=== PATIENT | female | born 1990 | race American Indian/Alaskan Native ===

== ENCOUNTER 2018-02-06 16:56 | Inpatient (IN) | payer BC ==
[2018-02-06] MEDS ORDERED: BACTRIM DS PO ONE (20:22)
[2018-02-06] MEDS ORDERED: MOTRIN PO ONE (20:22)
--- NOTE | 2018-02-06 20:24 | Emergency Department Report ---
- General Chief complaint: Skin/Abscess/Foreign Body Stated complaint: BOIL ON (L) SIDE BUTTOCK Time Seen by Provider: 02/06/18 20:10 Source: patient Mode of arrival: Ambulatory Limitations: No Limitations - History of Present Illness Initial comments: 27-year-old -[place] female comes in for boil to her left buttocks. Patient reports that she continues to have these boils on her buttocks. Patient reports that she had one 2 weeks ago but this one has gotten worse. Patient has been cleaning the area with peroxide but no resolution of pain. Patient has not taken any pain medication. Patient has no past medical history currently takes no medications on a daily basis and has no known drug allergies. MD complaint: abscess/boil -: days(s) (2) Location: buttocks Severity scale (0 -10): 10 Quality: aching, sharp Consistency: constant Improves with: none Worsens with: movement Context: none Associated symptoms: fever Treatments Prior to Arrival: OTC topical medication - Related Data Allergies Allergy/AdvReac Type Severity Reaction Status Date / Time No Known Allergies Allergy Unverified 02/06/18 17:28 Abscess Boil HPI - HPI Chief Complaint: Skin/Abscess/Foreign Body Stated Complaint: BOIL ON (L) SIDE BUTTOCK Time Seen by Provider: 02/06/18 20:10 Allergies/Adverse Reactions: Allergies Allergy/AdvReac Type Severity Reaction Status Date / Time No Known Allergies Allergy Unverified 02/06/18 17:28 ED Review of Systems ROS: Stated complaint: BOIL ON (L) SIDE BUTTOCK Other details as noted in HPI Skin: lesions ED Past Medical Hx - Past Medical History Previous Medical History?: No - Surgical History Past Surgical History?: No - Social History Smoking Status: Never Smoker Substance Use Type: None ED Physical Exam - General Limitations: No Limitations General appearance: alert, in no apparent distress - Head Head exam: Present: atraumatic, normocephalic - Eye Eye exam: Present: EOMI - ENT ENT exam: Present: mucous membranes moist - Cardiovascular Cardiovascular Exam: Present: tachycardia - Rectal Rectal exam: Present: tenderness - Expanded Skin Exam Expanded Type of lesion: Present: abscess Distribution of rash: other (superior gluteal cleft) ED Course Vital Signs 02/06/18 02/06/18 17:26 21:24 Temperature 100.0 F H 99.5 F Pulse Rate 119 H 100 H Respiratory 16 18 Rate Blood Pressure 125/90 Blood Pressure 143/87 [Right] O2 Sat by Pulse 100 100 Oximetry ED Medical Decision Making - Lab Data Result diagrams: 02/06/18 20:34 02/06/18 20:34 - Medical Decision Making Patient's been evaluated by this provider fast track.. CBC CMP has been ordered. Bactrim double strength and ibuprofen ordered Patient's CBC came back with elevated white count. Patient is still tachycardia after having ibuprofen for pain management Discussed case with Dr. Chong. Spoke with the admitting provider for evaluation for admission. IV insertion, lactic acid, blood cultures have been ordered. Critical care attestation.: If time is entered above; I have spent that time in minutes in the direct care of this critically ill patient, excluding procedure time. ED Disposition Clinical Impression: Pilonidal abscess Disposition: OP ADMIT IP TO THIS HOSP Is pt being admited?: Yes Does the pt Need Aspirin: No Condition: Stable Referrals: PRIMARY CARE, [Primary Care Provider] - 3-5 Days
[2018-02-06 20:45] LABS: Basophils % (Auto) 0.2 % (0.0-1.8); Eosinophils % (Auto) 0.2 % (0.0-4.3); Hematocrit 36.9 % (30.3-42.9); Hemoglobin 12.1 gm/dl (10.1-14.3); Lymphocytes # (Auto) 2.2 K/mm3 (1.2-5.4); Lymphocytes % (Auto) 16.4 % (13.4-35.0); Mean Corpuscular HGB Conc 33 % (30-34); Mean Corpuscular Hemoglobin 27 pg (28-32); Mean Corpuscular Volume 81 fl (79-97); Monocytes # (Auto) 0.9 K/mm3 (0.0-0.8); Platelet Count 367 K/mm3 (140-440); Red Blood Count 4.56 M/mm3 (3.65-5.03); Red Cell Distribution Width 15.1 % (13.2-15.2)
[2018-02-06 21:07] LABS: Alanine Aminotransferase 18 units/L (7-56); Albumin 4.2 g/dL (3.9-5); BUN/Creatinine Ratio 9; Blood Urea Nitrogen 7 mg/dL (7-17); Hemolysis Index 5
[2018-02-06] MEDS ORDERED: TYLENOL PO PRN (23:07)
[2018-02-06] MEDS ORDERED: ZOFRAN IV PRN (23:07)
[2018-02-07] MEDS: NACL 0.9% 1000 ML 1,000 ML IV SCH ×3 (01:28→16:51)
[2018-02-07] MEDS ORDERED: ZOSYN/NS 3.375GM/50ML 3.375 GM/50 ML BAG IV SCH (06:00)
[2018-02-07] MEDS: ZOSYN/NS 4.5GM/100ML 4.5 GM/100 ML VIAL IV SCH ×3 (06:52→22:53)
--- NOTE | 2018-02-07 07:25 | History and Physical Report ---
CHIEF COMPLAINT: Boil with pain in the buttocks area. HISTORY OF PRESENT ILLNESS: The patient is a 27-year-old female, who presented to the Emergency Room with boils in the buttocks area and boil is associated with pain and the patient says she had some boils about 2 weeks ago and kept applying hydrogen peroxide to the area without any resolution and the pain became increasingly worse to the extent that the patient cannot sit down comfortably. There is no history of fever or chills. No history of nausea and vomiting. The patient presented for evaluation. PAST MEDICAL HISTORY: Unremarkable. PAST SURGICAL HISTORY: Noncontributory. FAMILY HISTORY: Noncontributory. SOCIAL HISTORY: The patient does not smoke, does not drink alcohol, and does not use illicit drugs. MEDICATIONS: The patient is not on any medication. ALLERGIES: There are no known drug allergies. REVIEW OF SYSTEMS: CONSTITUTIONAL: There is no fever, no chills, no diaphoresis. HEENT: There is no headache or sore throat. CARDIOVASCULAR SYSTEM: There is no chest pain or orthopnea. RESPIRATORY SYSTEM: There is no shortness of breath or cough. GASTROINTESTINAL SYSTEM: There is no nausea, no vomiting, no abdominal pain, diarrhea or constipation. NEUROLOGICAL SYSTEM: There is no numbness, no dizziness, no altered mental status. MUSCULOSKELETAL SYSTEM: There is no joint pain or swelling. DERMATOLOGICAL SYSTEM: There is boil and swelling in the buttocks area with pain. GENITOURINARY SYSTEM: There is no dysuria, hematuria or flank pain. Rest of system review is normal. PHYSICAL EXAMINATION: GENERAL: At the time of exam, the patient was found to be alert, oriented x 3 and in [id number] distress due to pain in the buttocks area. VITAL SIGNS: At the initial time of presentation showed temperature of 100 degrees Fahrenheit, pulse of 119, respirations 16, blood pressure 125/90, O2 sat of 100% on room air. HEENT: Exam showed pupils to be equal, round, reactive to light and accommodation. Extraocular muscles are intact. NECK: Supple with no JVD or carotid bruits. CARDIOVASCULAR SYSTEM: Show normal first and second heart sounds with no gallops or murmurs. RESPIRATORY SYSTEM: Show good air entry on both sides of the lungs with no abnormal breath sounds. GASTROINTESTINAL SYSTEM: Show abdomen to be full, soft, nontender with no organomegaly or rigidity. NEUROLOGICAL: Exam shows no focal deficit. MUSCULOSKELETAL SYSTEM: Show no joint swelling or tenderness. DERMATOLOGICAL SYSTEM: Shows swelling in the buttocks area, mainly in the left buttock and in the cleft with an area of induration and tenderness. GENITOURINARY SYSTEM: Show no costovertebral angle tenderness. PERTINENT LABORATORY AND IMAGING STUDIES: The patient has no imaging studies done. Lab results show CBC with elevated white count of 13,400, normal hemoglobin and normal hematocrit with CBC differential showing elevated segmented neutrophil of 76.2%. The patient's chemistry was unremarkable. Lactic acid level came back normal. DIAGNOSES: Perianal cellulitis with abscess. PLAN OF CARE: 1. The patient will be placed on observation in the medical-surgical [facility]. 2. The patient will have surgical consult with Dr. Akers for possible incision and drainage of the perianal abscess. 3. The patient will be on IV morphine 2 mg every 3 hours as needed for pain and IV Zofran 4 mg every 8 hours for nausea and vomiting. 4. The patient will be on IV Zosyn 3.375 grams q. 8 hours. 5. The patient will be on Tylenol 650 mg every 4 hours as needed for fever and headache. 6. The patient will be on IV Zofran 4 mg every 8 hours as needed for nausea and vomiting. 7. The patient's diet will be regular diet and the patient will be n.p.o. after midnight for possible intervention by the surgeon in the morning. JOB# [id number] OCN/NTS
[2018-02-07] MEDS: MORPHINE IV PRN ×2 (07:38→11:28)
[2018-02-07] MEDS ORDERED: MILK OF MAGNESIA PO ONE ×2 (16:03→22:00)
--- NOTE | 2018-02-07 18:37 | Cat Scan Report ---
FINAL REPORT PROCEDURE: CT pelvis with contrast. TECHNIQUE: Computerized axial tomography of the pelvis was performed following the IV injection of iodinated nonionic contrast. HISTORY: abscess/cyst on buttock COMPARISON: No prior studies are available for comparison. TECHNICAL QUALITY: Satisfactory. FINDINGS: There is some focal infiltration of the fat on both sides of the intergluteal cleft. This is more pronounced on the left side. This is located at the level of the sacrococcygeal junction. This infiltration of the fat suggests an acute inflammatory process. There is no fluid accumulation to suggest a cyst or abscess. The remaining soft tissues appear normal. The regional skeleton appears intact. IMPRESSION: Probable acute inflammation within the subcutaneous fat near the intergluteal cleft as described.
--- NOTE | 2018-02-07 20:57 | Progress Note ---
Assessment and Plan Assessment and plan: 27F with no significant pmh who pw Left buttock pain, swelling and induration Left buttock cellulitis -CT pelvis reviewed, cellulitis confirmed, no fluid collection observed -surgery consult appreciated -continue IV abx History Interval history: General.: Appears well, no distress, nontoxic HEENT: Moist mucous membranes, extraocular muscles intact, no lymphadenopathy Neck: supple Cardiac: S1-S2 heard Lungs: clear to auscultation bilaterally Abdomen: soft , nontender, nondistended, bowel sounds positive Extremities: no edema clubbing or cyanosis Skin: no rash or lesions Neurologic: no gross focal deficits Psych: appropriate behavior, appropriate mood, corporative, judgment intact Hospitalist Physical - Physical exam Narrative exam: Review of systems Constitutional: No fevers, no malaise, no joint pains CVS: No chest pain, no orthopnea, no dyspnea on exertion, no pedal edema GI: No abdominal pain, no diarrhea, no vomiting, no constipation Respiratory: No shortness of breath, no wheezing, no coughing - Constitutional Vitals: Temp Pulse Resp BP Pulse Ox 99.0 F 100 H 18 118/67 99 02/07/18 06:07 02/07/18 06:07 02/07/18 06:07 02/07/18 06:07 02/07/18 06:07 Results - Labs CBC & Chem 7: 02/06/18 20:34 02/06/18 20:34 Labs: Laboratory Last Values WBC 13.4 K/mm3 (4.5-11.0) H 02/06/18 20:34 RBC 4.56 M/mm3 (3.65-5.03) 02/06/18 20:34 Hgb 12.1 gm/dl (10.1-14.3) 02/06/18 20:34 Hct 36.9 % (30.3-42.9) 02/06/18 20:34 MCV 81 fl (79-97) 02/06/18 20:34 MCH 27 pg (28-32) L 02/06/18 20:34 MCHC 33 % (30-34) 02/06/18 20:34 RDW 15.1 % (13.2-15.2) 02/06/18 20:34 Plt Count 367 K/mm3 (140-440) 02/06/18 20:34 Lymph % (Auto) 16.4 % (13.4-35.0) 02/06/18 20:34 [place] % (Auto) 7.0 % (0.0-7.3) 02/06/18 20:34 Eos % (Auto) 0.2 % (0.0-4.3) 02/06/18 20:34 Baso % (Auto) 0.2 % (0.0-1.8) 02/06/18 20:34 Lymph # 2.2 K/mm3 (1.2-5.4) 02/06/18 20:34 [place] # 0.9 K/mm3 (0.0-0.8) H 02/06/18 20:34 Eos # 0.0 K/mm3 (0.0-0.4) 02/06/18 20:34 Baso # 0.0 K/mm3 (0.0-0.1) 02/06/18 20:34 Seg Neutrophils % 76.2 % (40.0-70.0) H 02/06/18 20:34 Seg Neutrophils # 10.2 K/mm3 (1.8-7.7) H 02/06/18 20:34 Sodium 137 mmol/L (137-145) 02/06/18 20:34 Potassium 3.9 mmol/L (3.6-5.0) 02/06/18 20:34 Chloride 103.8 mmol/L (98-107) 02/06/18 20:34 Carbon Dioxide 21 mmol/L (22-30) L 02/06/18 20:34 Anion Gap 16 mmol/L 02/06/18 20:34 BUN 7 mg/dL (7-17) 02/06/18 20:34 Creatinine 0.8 mg/dL (0.7-1.2) 02/06/18 20:34 Estimated GFR > 60 ml/min 02/06/18 20:34 BUN/Creatinine Ratio 9 % 02/06/18 20:34 Glucose 90 mg/dL (65-100) 02/06/18 20:34 Lactic Acid 0.80 mmol/L (0.7-2.0) 02/06/18 23:00 Calcium 9.0 mg/dL (8.4-10.2) 02/06/18 20:34 Total Bilirubin 0.40 mg/dL (0.1-1.2) 02/06/18 20:34 AST 17 units/L (5-40) 02/06/18 20:34 ALT 18 units/L (7-56) 02/06/18 20:34 Alkaline Phosphatase 60 units/L (35-129) 02/06/18 20:34 Total Protein 7.6 g/dL (6.3-8.2) 02/06/18 20:34 Albumin 4.2 g/dL (3.9-5) 02/06/18 20:34 Albumin/Globulin Ratio 1.2 % 02/06/18 20:34
[2018-02-08] MEDS ORDERED: NACL 0.9% IR ONE
[2018-02-08] MEDS: ZOSYN/NS 4.5GM/100ML 4.5 GM/100 ML VIAL IV SCH ×2 (06:39→21:55)
[2018-02-08] MEDS: NACL 0.9% 1000 ML 1,000 ML IV SCH (06:40)
[2018-02-08] MEDS: MORPHINE IV PRN (08:14)
[2018-02-08] MEDS ORDERED: DILAUDID IV PRN ×2 (13:05→13:23)
--- NOTE | 2018-02-08 13:07 | Anesthesia Consultation ---
Anesthesia Consult and Med Hx Date of service: 02/08/18 - Airway Anesthetic Teeth Evaluation: Good (broken top left molar) ROM Head & Neck: Adequate Mental/Hyoid Distance: Adequate Mallampati Class: Class II Intubation Access Assessment: Probably Good - Pulmonary Exam CTA: Yes - Cardiac Exam Cardiac Exam: RRR - Pre-Operative Health Status ASA Pre-Surgery Classification: ASA2 Proposed Anesthetic Plan: General - Pulmonary Hx Smoking: No Hx Asthma: No COPD: No - Cardiovascular System Hx Hypertension: No Hx Heart Attack/AMI: No - Central Nervous System Hx Seizures: No CVA: No - Endocrine Hx Renal Disease: No Hx Insulin Dependent Diabetes: No - Hematic Hx Anemia: No - Other Systems Hx Obesity: Yes - Additional Comments Anesthesia Medical History Comments: No prior anesthetic complications.
--- NOTE | 2018-02-08 13:07 | Anesthesia Day of Surgery ---
Anesthesia Day of Surgery - Day of Surgery Patient Examined: Yes Patient H&P Reviewed: Yes Patient is NPO: Yes
[2018-02-08] MEDS ORDERED: DIPRIVAN 10 MG/ML IV ONE (13:12)
[2018-02-08] MEDS: LACTATED RINGERS 1,000 ML IV SCH ×2 (13:28→17:15)
--- NOTE | 2018-02-08 13:40 | Consultation ---
HISTORY OF PRESENT ILLNESS: I was called to see this patient. She is a 27-year-old black female. She is little bit on the overweight side. She mentioned that she had an abscess in her buttock about 1 year ago that required lancing. This was done in [facility]. She did well. Apparently, in the last 4-5 days, she has complaints of severe pain in the left buttock area and she felt some swelling with severe tenderness, but there is no evidence of any sinus tract, there is no evidence of any purulent material coming out. She denied any diabetes. She does not take any medication on regular basis. She was seen by Dr. Jeff Yeung who asked me to see her. I saw her this afternoon. PHYSICAL EXAMINATION: GENERAL: She is a fine lady. She is a little bit obese. HEAD AND NECK: Nonrevealing. Neck is supple. CHEST: Essentially clear. HEART: Sound normal. ABDOMEN: Protuberant, soft, benign. EXTREMITIES: Showed no evidence of edema. RECTAL: Showed a small area that is about 5 x 5 cm located on the left side of her buttock about 2 cm from the anal verge. There is no evidence of any discharge. IMPRESSION: Perirectal abscess for drainage. We will try to do that tomorrow under local standby anesthesia and I am going to call to handle that. JOB# [id number] ANDREA/RAGINI FAJARDO
[2018-02-08] MEDS ORDERED: MARCAINE 0.5% INFILTRATI ONE ×2 (13:44)
[2018-02-08] MEDS ORDERED: ZOFRAN IV NR (14:00)
[2018-02-08] MEDS ORDERED: VERSED IV NR (14:00)
[2018-02-08] MEDS ORDERED: SUBLIMAZE ONE ×2 (14:14→15:13)
[2018-02-08] MEDS ORDERED: QUELICIN ONE (15:09)
[2018-02-08] MEDS ORDERED: DECADRON ONE (15:09)
--- NOTE | 2018-02-08 16:19 | Progress Note ---
Hospitalist Physical - Constitutional Vitals: Temp Pulse Resp BP Pulse Ox 97.3 F L 103 H 15 165/82 100 02/08/18 15:29 02/08/18 15:44 02/08/18 15:44 02/08/18 15:44 02/08/18 15:44 Results - Labs CBC & Chem 7: 02/06/18 20:34 02/06/18 20:34 Labs: Laboratory Last Values WBC 13.4 K/mm3 (4.5-11.0) H 02/06/18 20:34 RBC 4.56 M/mm3 (3.65-5.03) 02/06/18 20:34 Hgb 12.1 gm/dl (10.1-14.3) 02/06/18 20:34 Hct 36.9 % (30.3-42.9) 02/06/18 20:34 MCV 81 fl (79-97) 02/06/18 20:34 MCH 27 pg (28-32) L 02/06/18 20:34 MCHC 33 % (30-34) 02/06/18 20:34 RDW 15.1 % (13.2-15.2) 02/06/18 20:34 Plt Count 367 K/mm3 (140-440) 02/06/18 20:34 Lymph % (Auto) 16.4 % (13.4-35.0) 02/06/18 20:34 [place] % (Auto) 7.0 % (0.0-7.3) 02/06/18 20:34 Eos % (Auto) 0.2 % (0.0-4.3) 02/06/18 20:34 Baso % (Auto) 0.2 % (0.0-1.8) 02/06/18 20:34 Lymph # 2.2 K/mm3 (1.2-5.4) 02/06/18 20:34 [place] # 0.9 K/mm3 (0.0-0.8) H 02/06/18 20:34 Eos # 0.0 K/mm3 (0.0-0.4) 02/06/18 20:34 Baso # 0.0 K/mm3 (0.0-0.1) 02/06/18 20:34 Seg Neutrophils % 76.2 % (40.0-70.0) H 02/06/18 20:34 Seg Neutrophils # 10.2 K/mm3 (1.8-7.7) H 02/06/18 20:34 Sodium 137 mmol/L (137-145) 02/06/18 20:34 Potassium 3.9 mmol/L (3.6-5.0) 02/06/18 20:34 Chloride 103.8 mmol/L (98-107) 02/06/18 20:34 Carbon Dioxide 21 mmol/L (22-30) L 02/06/18 20:34 Anion Gap 16 mmol/L 02/06/18 20:34 BUN 7 mg/dL (7-17) 02/06/18 20:34 Creatinine 0.8 mg/dL (0.7-1.2) 02/06/18 20:34 Estimated GFR > 60 ml/min 02/06/18 20:34 BUN/Creatinine Ratio 9 % 02/06/18 20:34 Glucose 90 mg/dL (65-100) 02/06/18 20:34 Lactic Acid 0.80 mmol/L (0.7-2.0) 02/06/18 23:00 Calcium 9.0 mg/dL (8.4-10.2) 02/06/18 20:34 Total Bilirubin 0.40 mg/dL (0.1-1.2) 02/06/18 20:34 AST 17 units/L (5-40) 02/06/18 20:34 ALT 18 units/L (7-56) 02/06/18 20:34 Alkaline Phosphatase 60 units/L (35-129) 02/06/18 20:34 Total Protein 7.6 g/dL (6.3-8.2) 02/06/18 20:34 Albumin 4.2 g/dL (3.9-5) 02/06/18 20:34 Albumin/Globulin Ratio 1.2 % 02/06/18 20:34
--- NOTE | 2018-02-08 16:55 | Post Anesthesia Evaluation ---
- Post Anesthesia Evaluation Patient Participated: Yes Airway Patent: Yes Stable Respiratory Function: Yes Nausea/Vomiting: No Temp > 96.8F: Yes Pain Manageable: Yes Adequeate Hydration: Yes Anesthesia Complications: No
--- NOTE | 2018-02-08 20:24 | Operative Report ---
PREOPERATIVE DIAGNOSIS: Perirectal abscess. POSTOPERATIVE DIAGNOSES: Perirectal and pilonidal abscess. SURGERY: Wide excision with unroofing of pilonidal abscess and packing. ANESTHESIA: General. BLOOD LOSS: Minimal. FINDINGS: The patient had a fairly good sized pilonidal abscess that goes all the way to the perianal area. This was about 3 x 3 cm and goes on both sides of the superior anal area. I had to irrigate that well and packed it. BLOOD LOSS: Minimal. DESCRIPTION OF PROCEDURE: With the patient in the prone position, prepped and draped in usual fashion. I had to change her position from the lithotomy to the prone to see the area well. Apparently, she had a pilonidal abscess with sinus formation on her left side way by the coccygeal aspect. So, I made a spindle-shaped incision around the sinus with a length of about 2.5 x 1 cm deep subcutaneous tissue. I was able then to introduce my finger into the depth of the abscess breaking all the loculations and irrigating that well and then I packed it with use of a 2-inch iodoform gauze. A bandage was then applied. The patient was then flipped back on her back and transferred to PACU. I talked to her mom, then she had the story and thus she is to be a good up to 4-6 weeks for that to heal slowly with the packing and cystic mass with medicated soap. Gone through her some antibiotic as well. JOB# [id number] ANDREA/RAGINI
[2018-02-09] MEDS: LACTATED RINGERS 1,000 ML IV SCH (05:22)
[2018-02-09] MEDS: MORPHINE IV PRN ×2 (05:22→12:57)
[2018-02-09] MEDS: ZOSYN/NS 4.5GM/100ML 4.5 GM/100 ML VIAL IV SCH ×2 (05:55→07:45)
--- NOTE | 2018-02-09 09:49 | Query-Infection ---
"Jeremias Smith____Anjana Date:___02/09/18 Retail Sales Lead/CDS:___reymundo Phone#:____[phone] Exercise your independent professional judgment when responding to this query. Questions asked do not imply a particular answer is desired or expected. We greatly appreciate your clarification on this issue. Clinical Documentation States: 27F with no significant pmh who pw Left buttock pain, swelling and induration Left buttock cellulitis -CT pelvis reviewed, cellulitis confirmed, no fluid collection observed -surgery consult appreciated -continue IV abx Clinical findings show: (please check applicable parameters) Infection, known /suspected, with some of the following indicators; Specify the infection: Left buttock cellulitis 02/06/18 WBC 13.4 MT 119 Temp 100 F Pt given IV antibiotic : Piperacillin/Tazobactam 3 General parameters [X ] Fever (core temp >38.30C or 100.40F) [ ] Hypothermia (core temp <36C) [X ] Heart rate >90 bpm [ ] Tachypnea: >20 bpm or pCO2 < 32 mmHg [ ] Altered mental status [ ] Significant edema / +ve fluid balance (>20 ml/kg 24 h) [ ] Hyperglycemia (Bl. glucose >110 mg/dl) w/o diabetes Inflammatory parameters [X ] Leukocytosis (white blood cell count >12,000/l) [ ] Leukopenia (white blood cell count <4,000/l) [ ] Bandemia (immature WBC > 10%) [ ] Leucocyte Left Shift [ ] Plasma procalcitonin>2 SD above the normal value Hemodynamic and tissue perfusion parameters [ ] Arterial hypotension(SBP <90 mmHg, MAP <70 mmHg,or a SBP drop >40 mmHg in adults) [ ] Hyperlactatemia (>3 mmol/l) [ ] Anion Gap (> 11mEG/l) [ ] Decreased capillary refill or mottling Organ dysfunction parameters [ ] Arterial hypoxemia (PaO2/FIO2 <300) [ ] Creatinine increase =0.5 mg/dl [ ] Acute oliguria (urine output <0.5 ml | kg |h or 45 mM/l for at least 2 hrs) [ ] Coagulation abnormalities (INR >1.5 or activated partial thromboplastin time >60 s) [ ] Ileus (absent dagoberto wel sounds) [ ] Thrombocytopenia (platelet count <100,000/l) [ ] Hyperbilirubinemia (plasma total bilirubin >4 mg/dl) According to the clinical indications above, can Bacteremia be further specified? If so, please indicate below and in your Progress Notes and/ or Discharge Summary. Indicate if the condition was present on admission. PHYSICIAN RESPONSE: [ x] Sepsis [ ] Severe Sepsis [ ] Septic Shock [ ] Septicemia [ ] Sepsis now resolved [ ] SIRS due to non-infectious cause with organ dysfunction [ ] SIRS due to non-infectious cause without organ dysfunction [ ] Other: [ ] Comment/Explanation: Present on Admission: [ x] Yes (Y) [ ] Clinically undeterminable (W) [ ] No (N) [ ] Ruled Out Please also document response in your Progress Notes and/or Discharge Summary and indicate if the condition was present on admission Notes: SIRS/ SIRS WITH ORGAN DYSFUNCTION Systemic inflammatory response syndrome (SIRS) generally refers to the systemic response to trauma/shanks or other insult such as Acute Myocardial Infarction, Acute Pancreatitis, and Major Surgery with symptoms including fever, tachycardia , tachypnea, and leukocytosis (1). BACTEREMIA Presence of viable bacteria in the circulating blood (2). This term is reserved for patients that do not manifest above SIRS response. SEPTICEMIA Generally refers to a systemic disease associated with the presence of pathological microorganisms or toxins in the blood, which can include bacteria, viruses, fungi or other organisms (1). SEPSIS Generally refers to SIRS due infection (1). SEVERE SEPSIS Generally refers to sepsis associated with acute organ dysfunction (1). SEPTIC SHOCK Generally refers to circulatory failure associated with severe sepsis (2), and defined as hypotension or hypoperfusion despite adequate fluid resuscitation (1 hour) (3). REFERENCES: 1. [place] [employer]/Society of Critical Care Medicine Consensus Conference. Definitions for sepsis and organ failure and guidelines for the use of innovative therapies in sepsis. Critical Care Med 1992;20:864 - 74. 2. Konstantin hall MM, Simin MP, Shashank CLIFF, Robert E, Nicolas D, Cleveland D, Jose Luis J, Yamel CURTIS , Mack JEROME, Keisha G; International Sepsis Definitions Conference. 2001 SCCM/ESICM/ACCP/ATS/SIS International Sepsis Definitions Conference. Intensive Care Med. 2002;29(4):530-8. Epub 2002Aug 02. Review. PubMed PMID:[id number] 3. ICD-9-CM Official Guidelines for Coding and Reporting 4. Medscape Drugs, Diseases and Procedures references 5. [employer] Textbook of Internal Medicine. 18th Edition MTDD"
[2018-02-09 12:12] VITALS: BP 126/78
--- NOTE | 2018-02-09 12:47 | Discharge Summary ---
Providers - Providers Date of Admission: 02/07/18 08:59 Attending physician: KENDAL HAY MD 02/07/18 06:04 Consult to Physician [CONS] Routine Comment: Consulting Provider: BUNNY DILL Physician Instructions: Reason For Exam: PERIANAL CELLULITIS/ABCESS Primary care physician: BELL MAKER Hospitalization Condition: Stable Disposition: DC-30 STILL A PATIENT Core Measure Documentation - Palliative Care Palliative Care/ Comfort Measures: Not Applicable Exam - Constitutional Vitals: Temp Pulse Resp BP Pulse Ox 98.8 F 109 H 20 126/78 99 02/09/18 11:15 02/09/18 11:15 02/09/18 11:15 02/09/18 11:15 02/09/18 11:15 Plan Follow up with: PRIMARY CAREMD [Primary Care Provider] - 3-5 Days Prescriptions: Amoxicillin/Potassium Clav [Augmentin 875-125 Tablet] 1 each PO BID #10 tablet oxyCODONE /ACETAMINOPHEN [Percocet 5/325] 1 tab PO Q6HR PRN #20 tablet PRN Reason: Pain
--- NOTE | 2018-02-09 12:52 | Progress Note ---
Subjective Patient Reports: Positive: feels better, flatus Narrative: doung Fine ,packing out wound OK . indicated to Pt the need to wash area with hibiclens soap bid no driving to see me in 10 days , told Pt may need up to 6 weeks for wound to heal It may recure , Objective Vital Signs - 12hr 02/09/18 02/09/18 02/09/18 01:13 05:07 07:15 Temperature 98.3 F 98.4 F 98.7 F Pulse Rate 83 101 H 85 Respiratory 16 18 16 Rate Blood Pressure 134/81 132/77 127/70 O2 Sat by Pulse 99 100 100 Oximetry 02/09/18 11:15 Temperature 98.8 F Pulse Rate 109 H Respiratory 20 Rate Blood Pressure 126/78 O2 Sat by Pulse 99 Oximetry - Labs 02/06/18 20:34 02/06/18 20:34
--- NOTE | 2018-02-09 20:47 | Discharge Summary ---
FINAL DIAGNOSIS: Abscess formation in the lower coccygeal area, this is recurrent. She had this about 2 years ago. HOSPITAL COURSE: This patient was seen in the ER with the above. She was admitted for further evaluation. The next day, she was taken to the operating room where under general anesthesia she underwent unroofing of fairly good sized pilonidal abscess, about 4 x 4 cm. This was packed and today I took out. I had a lengthy talk with the patient and her mother as to the need for washings twice a day with Hibiclens soap. I gave her Keflex p.o. and Tylenol No. 3 for pain, not to drive. DIET: Ad melissa. JOB# [id number] ANDREA/RAGINI
== END 2018-02-09 15:15 | disposition home or self-care (01) | DRG 854 ==
LOC: ED 16:56 → 3A 23:03 → OBSVTOIN 02-07 08:59 → 3B-SURG 02-08 15:54
PROVIDERS: ADMIT Internal Medicine; ATTEND Internal Medicine
PROC: 0J9B0ZZ Drainage of Perineum Subcutaneous Tissue and Fascia, Open Approach (ICD-10-PCS; principal; 2018-02-08)
DX: A41.9 Sepsis, unspecified organism (principal); L03.317 Cellulitis of buttock; L05.01 Pilonidal cyst with abscess; E66.9 Obesity, unspecified; Z68.36 Body mass index [BMI] 36.0-36.9, adult
CPT/HCPCS: 36415; 72193; 80053; 81025; 82140; 85025; 87040; 87075; 87116; 88304; G0378; J0330; J1100; J1170; J2250; J2270; J2405; J2543; J2704; J3010; J7030; J7120; Q9967